=== PATIENT | female | born 1980 | race Caucasian/White ===

== ENCOUNTER 2022-06-28 08:10 | Day surgery (SDC) | payer BC ==
[2022-06-26 10:48] VITALS: BMI 32.8
[2022-06-28 09:46] VITALS: BP 95/44; PULSE 45; RESP 16; TEMP 98.4
== END 2022-06-28 10:15 | disposition home or self-care (01) ==
LOC: FASU-ENDO 08:10
PROVIDERS: ATTEND Internal Medicine Gastroenterology
PROC: 0DJD8ZZ Inspection of Lower Intestinal Tract, Via Natural or Artificial Opening Endoscopic (ICD-10-PCS; principal; 2022-06-28 09:10)
DX: Z12.11 Encounter for screening for malignant neoplasm of colon (principal); Z83.71 Family history of colonic polyps